=== PATIENT | male | born 1980 | race Caucasian/White ===

== ENCOUNTER 2021-01-21 22:49 | Inpatient (IN) | payer BC ==
[~2021-01-21] VITALS: Ht 188 cm; Wt 132.1 kg
[2021-01-21 23:16] VITALS: BP 128/63
[2021-01-21 23:51] LABS: BASOPHILS % (AUTO) 0.4 % (0.0-5.0); EOSINOPHILS % (AUTO) 1.1 % (0.0-8.0); HEMATOCRIT 45.6 % (42-54); LYMPHOCYTES % (AUTO) 24.9 % (21.0-51.0); MEAN CORPUSCULAR HEMOGLOBIN 30.8 pg (27.0-33.0); MEAN CORPUSCULAR HGB CONC 33.3 g/dL (32.0-36.0); MEAN CORPUSCULAR VOLUME 92.3 fL (79-99); MONOCYTES % (AUTO) 6.7 % (3.0-13.0); NEUTROPHILS % (AUTO) 66.6 % (40.0-77.0); PLATELET COUNT (AUTO) 303 K/uL (130-400); RED BLOOD CELL COUNT(AUTO) 4.94 MIL/uL (4.50-6.20); WHITE BLOOD COUNT (AUTO) 11.8 K/uL (4.8-10.8)
[2021-01-21 23:58] LABS: CREATININE 1.1 mg/dL (0.5-1.5); POTASSIUM 3.8 mmol/L (3.5-5.1)
[2021-01-22] VITALS (26 sets, daily range): BP systolic 117–198; BP diastolic 68–124
[2021-01-22 00:03] LABS: ALBUMIN 3.5 g/dL (3.5-5.0); BILIRUBIN,TOTAL 0.5 mg/dL (0.2-1.0); TOTAL PROTEIN, SERUM 6.7 g/dL (6.0-8.3)
[2021-01-22 00:10] LABS: INR 1.15 (0.85-1.15); PROTHROMBIN TIME 12.4 SEC (9.6-11.6)
[2021-01-22] MEDS ORDERED: CEFAZOLIN SODIUM 1 GM VIAL ONE (00:37)
[2021-01-22] MEDS: CEFAZOLIN SODIUM 1 GM VIAL IVP SCH ×4 (00:41→23:37)
[2021-01-22] MEDS: MORPHINE 4 MG SYG IM PRN ×3 (00:42→19:27)
[2021-01-22] MEDS ORDERED: GLYCOPYRROLATE 1 MG/5 ML SYRINGE ONE (11:44)
[2021-01-22] MEDS ORDERED: ONDANSETRON 4MG INJ ONE (11:44)
[2021-01-22] MEDS ORDERED: PROPOFOL 10 MG/ML 20ML VIAL IV ONE ×2 (11:44→12:50)
[2021-01-22] MEDS ORDERED: FENTANYL CITRATE PF 50 MCG/1 ML 2ML VIAL ONE (11:44)
[2021-01-22] MEDS ORDERED: LIDOCAINE PF 100MG/5ML (2%) SYRINGE 5ML ONE (11:44)
[2021-01-22] MEDS ORDERED: SUCCINYLCHOLINE CHLORIDE 20 MG/ML 10 ML VIAL ONE (11:44)
[2021-01-22] MEDS ORDERED: NEOSTIGMINE 5MG/5ML SYR IV ONE (11:44)
[2021-01-22] MEDS ORDERED: DEXAMETHASONE SOD PHOSPHATE 10MG/ML 1ML VIAL ONE (11:44)
[2021-01-22] MEDS ORDERED: ROCURONIUM 10MG/1ML SYR 10 MG/ML ML ONE (11:45)
[2021-01-22] MEDS ORDERED: MIDAZOLAM HCL 1 MG/ML 2ML VIAL ONE (11:45)
[2021-01-22] MEDS ORDERED: CEFAZOLIN SODIUM 1 GM VIAL IRRIG ONE (13:10)
[2021-01-22] MEDS ORDERED: HYDRALAZINE 20MG/ML VIAL ONE (15:27)
[2021-01-22] MEDS ORDERED: MEPERIDINE-PF 25 MG/ML SYG ONE ×2 (15:29→16:11)
[2021-01-23 03:53] VITALS: BP 144/94
[2021-01-23] MEDS: CEFAZOLIN SODIUM 1 GM VIAL IVP SCH ×3 (06:01→17:34)
[2021-01-23] MEDS: MORPHINE 4 MG SYG IM PRN ×3 (06:24→17:34)
[2021-01-23 07:43] VITALS: BP 168/97
[2021-01-23 11:09] VITALS: BP 155/96
[2021-01-23 16:09] VITALS: BP 154/84
== END 2021-01-23 18:40 | disposition home or self-care (01) | DRG 581 ==
LOC: EDH 22:49 → EDHIP 23:38 → 3AH 01-22 08:28
PROVIDERS: ADMIT Surgery Plastic and Reconstructive Surgery; ATTEND Surgery Plastic and Reconstructive Surgery
PROC: 0LQ80ZZ Repair Left Hand Tendon, Open Approach (ICD-10-PCS; principal; 2021-01-22 12:47)
PROC: 01N50ZZ Release Median Nerve, Open Approach (ICD-10-PCS; 2021-01-22 12:47)
DX: S61.412A Laceration without foreign body of left hand, initial encounter (principal); X58.XXXA Exposure to other specified factors, initial encounter; Y93.89 Activity, other specified; Y92.89 Other specified places as the place of occurrence of the external cause; Y99.8 Other external cause status; E66.9 Obesity, unspecified; Z68.37 Body mass index [BMI] 37.0-37.9, adult
CPT/HCPCS: 36415; 71045; 73130; 80053; 85025; 85610; 93005; A4565; A4606; G0378; J0330; J0360; J0690; J1100; J2001; J2175; J2250; J2270; J2405; J2704; J2710; J3010; J3490; J7030